=== PATIENT | male | born 1950 | race Caucasian/White ===

== ENCOUNTER 2018-09-11 05:57 | Inpatient (IN) | payer OTHER ==
[2018-09-11] VITALS (21 sets, daily range): BP systolic 74–126; BP diastolic 37–74
[~2018-09-11] VITALS: Ht 182.9 cm; Wt 127.5 kg
[2018-09-11] MEDS ORDERED: METHYLENE BLUE 10 ML VIAL ONE (06:40)
[2018-09-11] MEDS ORDERED: LIDOCAINE HCL/PF 1% 30 ML SDV ONE ×2 (06:40→09:12)
[2018-09-11] MEDS ORDERED: CEFAZOLIN 1 GM ONE (06:40)
[2018-09-11] MEDS ORDERED: HEMOSTATIC MATRIX 10 ML 1 EACH PAD MC ONE ×4 (06:40→13:12)
[2018-09-11] MEDS ORDERED: ANESTHESIA TRAY IN PYXIS 1 EA TRAY MC ONE ×2 (06:40→15:11)
[2018-09-11] MEDS ORDERED: methylPREDNISolone ACETATE 80 MG/ML VIAL ONE (06:41)
[2018-09-11] MEDS ORDERED: PROPOFOL 100 ML ONE (06:48)
[2018-09-11] MEDS ORDERED: PROPOFOL 300 ML ONE (06:50)
--- NOTE | 2018-09-11 06:55 | NUR ---
MS RN NOTE RECEIVED PT IN STABLE CONDITION A&O X4. PT IS AMBULATORY, NO SIGNS OF SOB OR DISTRESS, NO C/O PAIN. NPO SINCE 0000. IV IN R AC #20 S/L. BODY CHECK DONE. BELONGINGS ACCOUNTED FOR. ALL CURRENT NEEDS MET. BED LOW, LOCKED, UPPER RAILS UP AND CALL LIGHT WITHIN REACH. WILL ENDORSE TO NEXT SHIFT FOR VILLA.
[2018-09-11] MEDS ORDERED: BACITRACIN OPHTH OINT 3.5 GM TUBE ONE (08:25)
[2018-09-11] MEDS ORDERED: BUPIVACAINE 0.5 % PF 150 MG/30 ML VIAL ONE (09:14)
[2018-09-11] MEDS ORDERED: HEPARIN SODIUM, PORCINE 5000 UNITS/1 ML VIAL ONE (09:19)
[2018-09-11] MEDS ORDERED: PHENYLEPHRINE 10 MG/ML VIAL IV ONE (10:08)
[2018-09-11] MEDS ORDERED: TRANEXAMIC ACID 1,000 MG in IV NS 0.9% 100 ML IV ONE (10:30)
[2018-09-11] MEDS ORDERED: CYCLOBENZAPRINE 10 MG TABLET PO PRN (12:00)
[2018-09-11] MEDS ORDERED: MENTHOL/CETYLPYRD (CEPACOL) 1 LOZ LOZENGE MM PRN (12:00)
[2018-09-11] MEDS ORDERED: CLONIDINE HCL 0.1 MG TABLET PO PRN (12:00)
[2018-09-11] MEDS ORDERED: diphenhydrAMINE HCL 25 MG CAPSULE PO PRN (12:00)
[2018-09-11] MEDS ORDERED: HYDROMORPHONE INJ 0.5 MG/0.5 ML SYRINGE IV PRN (12:00)
[2018-09-11] MEDS ORDERED: BISACODYL SUPP (10 MG) 10 MG/SUPP.RECT SUPP.RECT RC PRN (12:00)
[2018-09-11] MEDS ORDERED: FENTANYL PF 100MCG/2ML AMPUL ONE (12:18)
[2018-09-11] MEDS ORDERED: GELATIN SPONGE,ABSORBABLE 1 SPONGE SPONGE TP ONE (12:24)
[2018-09-11] MEDS ORDERED: GELATIN SPONGE,ABSORBABLE 1 EA SPONGE TP ONE (12:25)
[2018-09-11] MEDS ORDERED: MAGNESIUM HYDROXIDE 30 ML UDC PO PRN (12:30)
[2018-09-11] MEDS ORDERED: MAG HYDROX/AL HYDROX/SIMETH 30 ML UDC PO PRN (12:30)
[2018-09-11] MEDS ORDERED: oxyCODONE IR immediate release 5 MG PO PRN (12:30)
[2018-09-11] MEDS: GABAPENTIN 300 MG CAPSULE PO SCH (13:00)
[2018-09-11 13:08] LABS: BASOPHILS % (AUTO) 0.3 % (0.0-2.0); EOSINOPHILS % (AUTO) 0.9 % (0.0-6.0); HEMATOCRIT 34 % (39-51); HEMOGLOBIN 11.4 g/dL (13.5-17.5); LYMPHOCYTES # (AUTO) 0.6 /CMM (0.8-4.8); LYMPHOCYTES % (AUTO) 5.4 % (20.0-44.0); MEAN CORPUSCULAR HGB CONC 34 g/dl (31.0-36.0); MEAN CORPUSCULAR VOLUME 86 fL (80-96); MONOCYTES # (AUTO) 0.1 /CMM (0.1-1.30); MONOCYTES % (AUTO) 1.2 % (2.0-12.0); NEUTROPHILS # (AUTO) 10.1 /CMM (1.8-8.9); NEUTROPHILS % (AUTO) 92.2 % (43.0-81.0); PLATELET COUNT (AUTO) 241 /CMM (150-450); RED BLOOD CELL COUNT(AUTO) 3.98 MIL/uL (4.5-6.0); WHITE BLOOD COUNT (AUTO) 10.9 K/uL (4.3-11.0)
[2018-09-11] MEDS ORDERED: HYDROMORPHONE INJ 0.5 MG/0.5 ML SYRINGE SQ PRN (14:52)
[2018-09-11] MEDS ORDERED: NALOXONE HCL 0.4 MG/ML AMPUL IV PRN (15:00)
[2018-09-11] MEDS ORDERED: HYDROMORPHONE INJ 2 MG/ML DISP.SYRIN ONE ×3 (16:59→17:51)
[2018-09-11] MEDS ORDERED: VANCOMYCIN 1 GM VIAL ONE (17:41)
--- NOTE | 2018-09-11 18:50 | NUR ---
RETAIL MERCHANDISING SPECIALIST NOTE RECEIVED PATIENT FROM OR.PATIENT INTUBATED 7 AND 24 AT LIP LEVEL.SEDATED.BP LOW STARTED ON RENEE.OK TO START AT 25MCG PER DOCTOR.TO KEEP SBP >100-110.AND TITRATE RENEE TO BE OFF.REPORT GIVEN TO MERI SAENZ FOR VILLA.
[2018-09-11 19:19] LABS: BASOPHILS % (AUTO) 0.1 % (0.0-2.0); EOSINOPHILS % (AUTO) 0.1 % (0.0-6.0); HEMATOCRIT 37 % (39-51); HEMOGLOBIN 11.9 g/dL (13.5-17.5); LYMPHOCYTES # (AUTO) 0.5 /CMM (0.8-4.8); LYMPHOCYTES % (AUTO) 2.9 % (20.0-44.0); MEAN CORPUSCULAR HGB CONC 33 g/dl (31.0-36.0); MEAN CORPUSCULAR VOLUME 88 fL (80-96); MONOCYTES # (AUTO) 0.6 /CMM (0.1-1.30); MONOCYTES % (AUTO) 3.6 % (2.0-12.0); NEUTROPHILS # (AUTO) 15.9 /CMM (1.8-8.9); NEUTROPHILS % (AUTO) 93.3 % (43.0-81.0); PLATELET COUNT (AUTO) 250 /CMM (150-450); RED BLOOD CELL COUNT(AUTO) 4.17 MIL/uL (4.5-6.0); WHITE BLOOD COUNT (AUTO) 17.1 K/uL (4.3-11.0)
[2018-09-11 19:24] LABS: CALCIUM, SERUM 7.9 mg/dL (8.5-10.1); CREATININE 1.7 mg/dL (0.6-1.3)
[2018-09-11] MEDS ORDERED: ONDANSETRON HCL/PF 4 MG/2 ML VIAL IVP PRN (19:30)
[2018-09-11] MEDS: PHENYLEPHRINE 20 MG in IV D5W 250 ML IV PRN (19:30)
[2018-09-11] MEDS ORDERED: Z GUARD REMEDY 2 OZ OINT TP PRN (19:30)
[2018-09-11] MEDS ORDERED: ZOLPIDEM TARTRATE 5 MG TABLET PO PRN (19:30)
[2018-09-11] MEDS: ANCEF 1 GM/50 ML D5W IV SCH ×2 (19:48)
[2018-09-11] MEDS: FAMOTIDINE (20 MG) 20 MG TABLET PO SCH (20:04)
[2018-09-11 20:13] LABS: POTASSIUM 6.9 mmol/L (3.5-5.1)
[2018-09-11] MEDS ORDERED: INSULIN REGULAR, HUMAN 100 UNIT/ML 10 ML VIAL SQ ONE (20:30)
[2018-09-11] MEDS ORDERED: DEXTROSE 50%-WATER 50 ML DISP.SYRIN IVP ONE (20:30)
[2018-09-11] MEDS: IV NS 0.9% 1,000 ML IV PRN (20:39)
[2018-09-11] MEDS: PROPOFOL 100 ML IV PRN (20:58)
[2018-09-11] MEDS: HYDROMORPHONE 1 MG/1 ML DISP.SYRIN IV PRN ×2 (21:06→23:07)
--- NOTE | 2018-09-11 21:35 | NUR ---
RATE CHANGED TO 16 FROM 12. VT TO [address] HERNANDEZ. LETTY AL AND CHARGE DAPHNE NOTIFIED. REPEAT ABG IN THE MORNING.
[2018-09-11] MEDS ORDERED: HEPARIN SODIUM, PORCINE 5000 UNITS/1 ML VIAL SQ ONE (22:00)
--- NOTE | 2018-09-11 22:00 | NUR ---
FIO2 DECREASED DUE TO INCREASED SPO2. RN AWARE Addendum: 09/11/18 at 2229 by ALLYSON HADDAD Amended: Links added.
[2018-09-11 22:23] LABS: CALCIUM, SERUM 7.8 mg/dL (8.5-10.1); CREATININE 1.7 mg/dL (0.6-1.3)
[2018-09-11 22:32] LABS: POTASSIUM 7.1 mmol/L (3.5-5.1)
[2018-09-11] MEDS ORDERED: Calcium Gluconate 0.465 MEQ/ML VIAL IV ONE (22:58)
[2018-09-11] MEDS ORDERED: Calcium Gluconate 1GM/10ML 4.65 MEQ in IV NS 0.9% 50 ML IV ONE (23:00)
[2018-09-12] VITALS (52 sets, daily range): BP systolic 85–185; BP diastolic 46–97
[2018-09-12] MEDS ORDERED: DEXTROSE 50%-WATER 50 ML DISP.SYRIN IV PRN
[2018-09-12] MEDS: BLOOD SUGAR DIAGNOSTIC 1 EACH STRIP IN SCH ×4 (00:14→17:53)
[2018-09-12] MEDS: INSULIN REGULAR, HUMAN 100 UNIT/ML 3 ML VIAL SQ PRN ×2 (00:16→05:30)
[2018-09-12 01:35] LABS: CALCIUM, SERUM 7.8 mg/dL (8.5-10.1); CREATININE 1.8 mg/dL (0.6-1.3)
[2018-09-12 01:36] LABS: POTASSIUM 6.8 mmol/L (3.5-5.1)
--- NOTE | 2018-09-12 02:08 | NUR ---
DR XIONG CALLED AND NOTIFIED OF POTASSIUM LEVEL 6.8, WILL ORDER EKG
[2018-09-12] MEDS: HYDROMORPHONE 1 MG/1 ML DISP.SYRIN IV PRN ×5 (02:32→11:34)
[2018-09-12] MEDS: PROPOFOL 100 ML IV PRN ×2 (02:37→06:28)
[2018-09-12] MEDS: ANCEF 1 GM/50 ML D5W IV SCH ×2 (04:02)
[2018-09-12] MEDS ORDERED: PHENYLEPHRINE 10 MG/ML VIAL ONE (04:33)
[2018-09-12] MEDS: PHENYLEPHRINE 20 MG in IV D5W 250 ML IV PRN (04:40)
[2018-09-12 05:08] LABS: BASOPHILS % (AUTO) 0.1 % (0.0-2.0); EOSINOPHILS % (AUTO) 0.1 % (0.0-6.0); HEMATOCRIT 31 % (39-51); HEMOGLOBIN 10.6 g/dL (13.5-17.5); LYMPHOCYTES % (AUTO) 8.2 % (20.0-44.0); MEAN CORPUSCULAR HGB CONC 34 g/dl (31.0-36.0); MEAN CORPUSCULAR VOLUME 87 fL (80-96); MONOCYTES # (AUTO) 1.2 /CMM (0.1-1.30); MONOCYTES % (AUTO) 9.6 % (2.0-12.0); NEUTROPHILS # (AUTO) 10.3 /CMM (1.8-8.9); PLATELET COUNT (AUTO) 243 /CMM (150-450); RED BLOOD CELL COUNT(AUTO) 3.61 MIL/uL (4.5-6.0); WHITE BLOOD COUNT (AUTO) 12.6 K/uL (4.3-11.0)
[2018-09-12 05:25] LABS: CALCIUM, SERUM 7.8 mg/dL (8.5-10.1); CREATININE 1.6 mg/dL (0.6-1.3); MAGNESIUM 1.8 mg/dL (1.8-2.4); PHOSPHORUS 2.6 mg/dL (2.5-4.9)
[2018-09-12] MEDS: IV NS 0.9% 1,000 ML IV PRN (06:15)
[2018-09-12] MEDS ORDERED: IV NS 0.9% 500 ML IV ONE (07:00)
[2018-09-12] MEDS ORDERED: FUROSEMIDE 20 MG/2 ML VIAL IV ONE (07:00)
[2018-09-12] MEDS ORDERED: SODIUM POLYSTYRENE SULFONATE 15 G/60 ML BOTTLE PO ONE (07:00)
--- NOTE | 2018-09-12 07:20 | NUR ---
MASTER FIRE CONTROL TECHNICIAN OPENING NOTE RECEIVED REPORT FROM PM NURSE.PATIENT IS INTUBATED 7.0/24 AND SEDATED WITH PROPOFOL 30MCG .BILATERAL CHEST MOVEMENT NOTED.BREATHING NORMAL.ON RENEE FOR MAINTAINING BP.HAS A- LINE INTACT AND PATENT.SAFETY AND ASPIRATION PRECAUTIONS IN PLACE.SIDE RAILSX2.BED ALARM ON WILL CONTINUE TO MONITOR.
[2018-09-12] MEDS ORDERED: BENZ1LOZ58 MM (08:07)
[2018-09-12] MEDS ORDERED: HYDR4TAB4 SUBCUT (08:07)
[2018-09-12] MEDS ORDERED: CLON0.1T PO (08:07)
[2018-09-12] MEDS ORDERED: DOCU-141 PO (08:07)
[2018-09-12] MEDS ORDERED: CYCL10TA9 PO (08:27)
[2018-09-12] MEDS ORDERED: SENN-18 PO (08:27)
[2018-09-12] MEDS ORDERED: FAMO-131 PO (08:27)
[2018-09-12] MEDS ORDERED: DIPH25TA25 PO (08:27)
[2018-09-12] MEDS ORDERED: HYDR-3980 PO (08:27)
[2018-09-12] MEDS ORDERED: GABA600T12 PO (08:27)
[2018-09-12] MEDS ORDERED: LAMO200T2 PO (08:27)
[2018-09-12] MEDS ORDERED: TAMS-12 PO (08:27)
[2018-09-12] MEDS ORDERED: MAGN400O6 PO (08:27)
[2018-09-12] MEDS ORDERED: ONDA4VIA52 IJ (08:27)
[2018-09-12] MEDS ORDERED: SEROQUEL PO (08:27)
[2018-09-12] MEDS ORDERED: MAG355OR18 PO (08:27)
[2018-09-12] MEDS ORDERED: OXYCODONE PO (08:27)
[2018-09-12] MEDS ORDERED: BISA10SU61 RC (08:27)
[2018-09-12] MEDS ORDERED: INSU100I19 SQ (08:40)
[2018-09-12] MEDS ORDERED: FLUT9.9S NS (08:40)
[2018-09-12] MEDS ORDERED: MELO-107 PO (08:40)
[2018-09-12] MEDS ORDERED: GLYC10.7 IH (08:40)
[2018-09-12] MEDS ORDERED: FOLI1TAB16 PO (08:40)
[2018-09-12] MEDS ORDERED: OMEP20CA11 PO (08:40)
[2018-09-12] MEDS ORDERED: LISI10TA5 PO (08:40)
[2018-09-12] MEDS ORDERED: ROPI0.5T PO (08:40)
[2018-09-12] MEDS ORDERED: DICL100G16 TP (08:40)
[2018-09-12] MEDS ORDERED: SIMV10TA6 PO (08:40)
[2018-09-12] MEDS ORDERED: GLIM4TAB2 PO (08:40)
[2018-09-12] MEDS ORDERED: DULA1.5P SQ (08:40)
[2018-09-12] MEDS: SODIUM ACETATE IV PRN ×2 (08:49→19:01)
[2018-09-12] MEDS: D5W IV PRN ×2 (08:49→19:01)
[2018-09-12] MEDS: FAMOTIDINE (20 MG) 20 MG TABLET PO SCH ×2 (08:50→20:29)
[2018-09-12] MEDS: SENNOSIDES 8.6 MG TABLET PO SCH (08:50)
[2018-09-12] MEDS: GABAPENTIN 300 MG CAPSULE PO SCH ×3 (08:50→16:29)
[2018-09-12] MEDS: TAMSULOSIN 0.4 MG CAP.SR.24H PO SCH (08:51)
[2018-09-12] MEDS: LamoTRIgine 100 MG TABLET PO SCH ×2 (08:51→16:29)
[2018-09-12] MEDS: DOCUSATE SODIUM 100 MG CAPSULE PO SCH ×2 (08:51→16:29)
[2018-09-12] MEDS ORDERED: HEPARIN SODIUM, PORCINE 5000 UNITS/1 ML VIAL SQ SCH (09:00)
[2018-09-12] MEDS ORDERED: DC PROPOFOL WHEN EXTUBATED XX PRN (09:00)
[2018-09-12 09:13] LABS: ABG BASE EXCESS -5.7 mmol/L; ABG OXYGEN SATURATION 97.6 % (92.0-98.5); ABG PCO2 41.5 mmHg (35.0-45.0); ABG PH 7.307 (7.350-7.450); ABG PO2 143.5 mmHg (75.0-100.0); AaDO2 238.7 mmHg; COHb 0.3 % (0.5-1.5); O2Hb 97.3 % (94.0-97.0); SITE, ABG Right Radial; VENT MODE, BG AC 16 650 60% +0
--- NOTE | 2018-09-12 10:50 | NUR ---
LABORER CEMENT GUN PLACING NOTE SEEN BY .GOT NEW ORDER FRO EXTUBATION.
--- NOTE | 2018-09-12 10:52 | NUR ---
RT EXTUBATED PT PLACE ON 2L NC SP02 98% NO RESP DISTRESS NOTED ATT
[2018-09-12 11:00] LABS: ABG BASE EXCESS -4.1 mmol/L; ABG OXYGEN SATURATION 98.2 % (92.0-98.5); ABG PCO2 34.3 mmHg (35.0-45.0); ABG PH 7.387 (7.350-7.450); ABG PO2 221.6 mmHg (75.0-100.0); AaDO2 168.5 mmHg; COHb 0.3 % (0.5-1.5); MetHb 0.3 % (0.0-1.5); O2Hb 97.6 % (94.0-97.0); SITE, ABG Right Radial; VENT MODE, BG SIMV 4 PS 15 +5 60%
[2018-09-12 12:30] LABS: APPEARANCE,URINE CLEAR (CLEAR); BILIRUBIN,URINE NEGATIVE (NEGATIVE); BLOOD, URINE NEGATIVE Ery/uL (NEGATIVE); COLOR,URINE YELLOW (YELLOW); KETONES,URINE NEGATIVE (NEGATIVE); LEUKOCYTE ESTERASE ,URINE NEGATIVE (NEGATIVE); NITRITE, URINE NEGATIVE (NEGATIVE); PROTEIN,URINE NEGATIVE (NEGATIVE); UGLUCOSE NEGATIVE (NEGATIVE); UROBILINOGEN,URINE 0.2 EU/dL (0.2)
[2018-09-12] MEDS ORDERED: QUETIAPINE FUMARATE 100 MG TABLET PO SCH (13:00)
[2018-09-12 13:02] LABS: CREATININE 1.4 mg/dL (0.6-1.3); POTASSIUM 4.6 mmol/L (3.5-5.1)
[2018-09-12 13:12] LABS: CREATININE, URINE 40.3 MG/DL (30.0-125.0); URINE SODIUM, RANDOM 130 mmol/l (40-220)
[2018-09-12 13:13] LABS: URINE TOTAL PROTEIN < 6.0 mg/dL (0-11.9)
[2018-09-12 13:57] LABS: EOSINOPHIL,URINE None Seen
[2018-09-12] MEDS: HYDROMORPHONE MDV 30 MG in IV NS 0.9% 15 ML, PCA TOTAL VOLUME 1 BAG IV PRN ×3 (14:52)
[2018-09-12] MEDS: ACETAMINOPHEN 325 MG TABLET PO PRN ×2 (16:29→21:02)
--- NOTE | 2018-09-12 18:51 | NUR ---
PIER WORKER CLOSING NOTE PATIENT AXOX4 WITH PERIODS OF CONFUSION. VISITED THE PATIENT.ON O2 VA NASAL CANULA 2L.NO SOB NO DISTRESS NOTED.ON VEGETABLE FARM WORKER FOR PAIN MANAGEMENT.SAFETY AND ASPIRATION PRECAUTIONS IN PLACE.A LINE REMOVED.MINIMAL BLEEDING NOTED.PRESSURE DRESSING APPLIED.ASPIRATION AND SAFETY MEASURES IN PLACE.SIDE RAILSX2.BED ALARM ON WILL ENDORSE TO M NURSE FOR VILLA.
--- NOTE | 2018-09-12 20:00 | NUR ---
COLLAR POINTER - NOTES - PATIENT AXOX4 WITH PERIODS OF CONFUSION. ON O2 VIA NASAL CANULA 2L. NO SOB NO DISTRESS NOTED. ON INSTALLER SOFT TOP FOR PAIN MANAGEMENT. SAFETY AND ASPIRATION PRECAUTIONS IN PLACE. ASPIRATION AND SAFETY MEASURES IN PLACE. SIDE RAILSX2. BED ALARM ON WILL CONTINUE TO MONITOR
[2018-09-12] MEDS: QUETIAPINE FUMARATE 100 MG TABLET PO SCH (20:29)
[2018-09-13] VITALS (15 sets, daily range): BP systolic 109–152; BP diastolic 35–80
[2018-09-13] MEDS: BLOOD SUGAR DIAGNOSTIC 1 EACH STRIP IN SCH ×4 (00:20→17:11)
[2018-09-13] MEDS: INSULIN REGULAR, HUMAN 100 UNIT/ML 3 ML VIAL SQ PRN ×4 (00:37→18:06)
[2018-09-13 04:56] LABS: BASOPHILS % (AUTO) 0.2 % (0.0-2.0); EOSINOPHILS % (AUTO) 0.7 % (0.0-6.0); HEMATOCRIT 34 % (39-51); HEMOGLOBIN 11.4 g/dL (13.5-17.5); LYMPHOCYTES # (AUTO) 1.9 /CMM (0.8-4.8); LYMPHOCYTES % (AUTO) 13.8 % (20.0-44.0); MEAN CORPUSCULAR HGB CONC 34 g/dl (31.0-36.0); MEAN CORPUSCULAR VOLUME 87 fL (80-96); MONOCYTES # (AUTO) 1.5 /CMM (0.1-1.30); MONOCYTES % (AUTO) 11.1 % (2.0-12.0); NEUTROPHILS # (AUTO) 10.2 /CMM (1.8-8.9); NEUTROPHILS % (AUTO) 74.2 % (43.0-81.0); PLATELET COUNT (AUTO) 237 /CMM (150-450); RED BLOOD CELL COUNT(AUTO) 3.87 MIL/uL (4.5-6.0); WHITE BLOOD COUNT (AUTO) 13.8 K/uL (4.3-11.0)
[2018-09-13 05:17] LABS: CALCIUM, SERUM 8.3 mg/dL (8.5-10.1); CREATININE 1.2 mg/dL (0.6-1.3); POTASSIUM 4.3 mmol/L (3.5-5.1)
[2018-09-13 05:18] LABS: ALBUMIN 2.9 g/dL (3.4-5.0); BILIRUBIN,TOTAL 0.7 mg/dL (0.2-1.0); MAGNESIUM 1.6 mg/dL (1.8-2.4); PHOSPHORUS 2.5 mg/dL (2.5-4.9); TOTAL PROTEIN, SERUM 6.2 g/dL (6.4-8.2)
--- NOTE | 2018-09-13 06:00 | NUR ---
TOTAL CK 2174, LOCAL GOVERNMENT LEGISLATOR GEOVANNA BRO NOTIFIED, NO NEW ORDERS
--- NOTE | 2018-09-13 07:15 | NUR ---
RN INITIAL NOTES RECEIVED PT AWAKE, A/0X2-3. NO RESPIRATORY DISTRESS NOTED. C/O BACK AND LEFT LEG PAIN. PT ON PT CONTROLLED DILAUDID DRIP. EXPLAINED USE, POSSIBLE SIDE EFFECTS OF DILAUDID. REINFORCED USE OF HAND HELD CONTROL. HEMOVAC IN PLACE. IV LINES IN PLACE. FC IN PLACE. NO HEMATURIA NOTED. WILL CLOSELY MONITOR.
[2018-09-13] MEDS: SENNOSIDES 8.6 MG TABLET PO SCH (08:23)
[2018-09-13] MEDS: DOCUSATE SODIUM 100 MG CAPSULE PO SCH ×2 (08:23→17:10)
[2018-09-13] MEDS: GABAPENTIN 300 MG CAPSULE PO SCH ×3 (08:23→17:11)
[2018-09-13] MEDS: TAMSULOSIN 0.4 MG CAP.SR.24H PO SCH (08:23)
[2018-09-13] MEDS: QUETIAPINE FUMARATE 100 MG TABLET PO SCH ×3 (08:23→20:34)
[2018-09-13] MEDS: FAMOTIDINE (20 MG) 20 MG TABLET PO SCH ×2 (08:23→20:34)
[2018-09-13] MEDS: LamoTRIgine 100 MG TABLET PO SCH ×2 (08:23→17:10)
--- NOTE | 2018-09-13 10:30 | NUR ---
RN NOTES 1000 SEEN AND EXAMINED BY DR HERNANDEZ. PT 0N 02 AT 2LPM. NO RESPIRATORY DISTRESS NOTED. NO SIGNS OF PAIN NOTED. PT ON HAIRSPRING STAKER, DILAUDID. PAIN WELL MANAGED. PT OFF RENEE SINCE 09/12. PT A/OX2-3. WILL MONITOR 1030 SEEN AND EXAMINED BY DR BARRETT. PT A/OX2-3. ON 02 VIA NC AT 2LPM. NO RESPIRATORY DISTRESS NOTED. ON HAIRSPRING STAKER PUMP, DILAUDID. VS WNL. PAIN WELL MANAGED. HEMOVAC IN PLACE. ABLE TO MOVE BLE. OK TO DOWNGRADE PT TELE.
--- NOTE | 2018-09-13 10:40 | NUR ---
RN NOTES AFSA RN TOOK OVER PT'S CARE. PERTINENT INFO GIVEN
[2018-09-13] MEDS: ONDANSETRON HCL/PF 4 MG/2 ML VIAL IVP PRN ×2 (11:05→18:42)
[2018-09-13] MEDS: LEVOFLOXACIN 500 MG /D5W 100ML 500 MG in PREMIX 1 EA IV SCH (13:09)
[2018-09-13] MEDS: Magnesium 1GM/D5W 100ML PREMIX 100 ML IV SCH ×2 (15:15→16:01)
--- NOTE | 2018-09-13 16:13 | NUR ---
REPORT GIVEN TO MARGARITO FOR VILLA
--- NOTE | 2018-09-13 16:15 | NUR ---
RECEIVED REPORT FROM OIL LABORATORY ANALYST.
--- NOTE | 2018-09-13 19:08 | NUR ---
FLEXIBLE BABYSITTER CLOSING NOTES GAVE REPORT TO INTERIOR SYSTEMS CARPENTER RN. PT IS SLEEPING BUT AROUSES EASILY. PT IS ON A BEAM BUILDER HELPER PUMP WITH DILAUDID GOING. PT HAS A ZAMAN DRAINING TO GRAVITY AND SAHRA IV 20 GAUGE. BED IS LOCKED AND CALL LIGHT IS IN PLACE WILL ENDORSE CONTINUITY OF CARE TO INTERIOR SYSTEMS CARPENTER RN.
--- NOTE | 2018-09-13 19:10 | NUR ---
TELE/RN ENTRY NOTES PATIENT IN NO ACUTE DISTRESS. BREATHING EVEN AND UNLABORED. ON 2 LTRS VIA N/C. HOB KEPT ELEVATED. PATIENT A/O X4. PATIENT C/O NAUSEA /VOMITING. PRN ZOFRAN WAS GIVEN ORDERED . WILL CONTINUE TO MONITOR. PATIENT DENIES ANY PAIN AT THIS TIME. PATIENT ON DILAUDID DRIPS VIA PLATE AND WELD INSPECTOR PUMP, EXPLAINED HOW TO USE HAND HELD CONTROL, POSSIBLE SIDE EFFECTS OF DILAUDID. F/C IN PLACE, PATENT, DRAINING WELL WITH CLEAN YELLOW URINE. IV SITES ON R SHOULDER AND R FOREARM NOTES WITH NO S/S OF INFECTION, INFILTRATION. SAFETY MAINTAINED. BED AT THE LOWEST SETTINGS. CALL LIGHT WITHIN REACH. WILL CONTINUE TO MONITOR PATIENT PER PLAN OF CARE.
[2018-09-13] MEDS ORDERED: KEY,NONCONTROL,TO KEEP IN PYXI 1 EA MC ONE ×2 (19:23→20:09)
[2018-09-13] MEDS: HYDROMORPHONE MDV 30 MG in IV NS 0.9% 15 ML, PCA TOTAL VOLUME 1 BAG IV PRN ×3 (20:15)
--- NOTE | 2018-09-13 20:45 | NUR ---
TELE/RN NOTES PATIENT HAD X 2 EPISODES OF VOMITING. COLOR NOTES YELLOW WITH FOOD PARTICLES. NO BLOOD IN THE VOMIT NOTED. PATIENT STOMACH NOTED DISTENDED WITH HYPOACTIVE BOWEL SOUNDS IN ALL QUADRANT. CALLED DR BRUNO AT THIS TIME. LEFT MESSAGE. WATING FOR CALL BACK.
--- NOTE | 2018-09-13 21:00 | NUR ---
TELE/RN NOTES DO YADIRA LEAD PRESSMAN OF DR BRUNO CALLED BACK AT THIS TIME, RELAYED TO PATIENT CONDITION, V/S WITH NEW ORDER TO GIVE PATIENT MAGNESIUM CITRATE. ORDER NOTED AND CARRIED OUT . WILL CONTINUE TO MONITOR PATIENT
[2018-09-13] MEDS ORDERED: MAGNESIUM CITRATE 296 ML BOTTLE PO ONE (21:30)
--- NOTE | 2018-09-13 22:00 | NUR ---
TELE/RN NOTES PATIENT REUSED TO HAVE HIS F/C REMOVED AT THIS TIME. PATIENT SAID " I WANT TO SLEEP, DO IT IN THE MORNING" WILL FOLLOW UP
--- NOTE | 2018-09-13 23:37 | NUR ---
RELAYED TO DR MAY THAT ZOFRAN WAS INEFFECTIVE.
[2018-09-14] VITALS: BP 136/70
[2018-09-14] MEDS: BLOOD SUGAR DIAGNOSTIC 1 EACH STRIP IN SCH ×4 (00:04→17:02)
[2018-09-14] MEDS: INSULIN REGULAR, HUMAN 100 UNIT/ML 3 ML VIAL SQ PRN ×4 (00:09→17:07)
[2018-09-14] MEDS: ONDANSETRON HCL/PF 4 MG/2 ML VIAL IVP PRN ×2 (02:19→09:25)
[2018-09-14 04:00] VITALS: BP 121/78
--- NOTE | 2018-09-14 04:30 | NUR ---
ENVIRONMENTAL SERVICES AIDE NOTES PATIENT CONTINUE TO HAVE EPISODES OF NAUSEA/VOMITING. PRN ZOFRAN WAS GIVEN WITH INEFFECTIVENESS. CALLED DR MAY AT THIS TIME AND RELAYED TO THE DOCTOR PATIENT CONDITION. DR MAY WITH NEW ORDER TO HAVE GI CONSULT. ORDER NOTED. WILL CONTINUE TO MONITOR PATIENT.
[2018-09-14 06:33] LABS: BASOPHILS % (AUTO) 0.1 % (0.0-2.0); EOSINOPHILS % (AUTO) 0.3 % (0.0-6.0); HEMATOCRIT 32 % (39-51); HEMOGLOBIN 10.6 g/dL (13.5-17.5); LYMPHOCYTES % (AUTO) 7.6 % (20.0-44.0); MEAN CORPUSCULAR HGB CONC 34 g/dl (31.0-36.0); MEAN CORPUSCULAR VOLUME 87 fL (80-96); MONOCYTES # (AUTO) 1.2 /CMM (0.1-1.30); NEUTROPHILS # (AUTO) 10.6 /CMM (1.8-8.9); PLATELET COUNT (AUTO) 228 /CMM (150-450); RED BLOOD CELL COUNT(AUTO) 3.63 MIL/uL (4.5-6.0); WHITE BLOOD COUNT (AUTO) 12.8 K/uL (4.3-11.0)
--- NOTE | 2018-09-14 06:47 | NUR ---
TELE/RN ENTRY NOTES PATIENT IN BED, SLEEPING AT THIS TIME, EASILY AROUSABLE. PATIENT IN NO ACUTE DISTRESS. BREATHING EVEN AND UNLABORED. ON 2 LTRS VIA N/C. HOB KEPT ELEVATED. NO S/S OF PAIN NOTED AT THIS TIME. NO C/O NAUSEA/ VOMITING AT THIS TIME. F/C IN PLACE, PATENT, DRAINING WELL WITH CLEAR, YELLOW URINE. IV SITES ON R SHOULDER AND R UPPER ARM NOTES WITH NO S/S OF INFECTION, INFILTRATION. SAFETY MAINTAINED. BED AT THE LOWEST SETTINGS. CALL LIGHT WITHIN REACH. WILL ENDORSE TO THE AM SHIFT NURSE FOR VILLA
[2018-09-14 06:53] LABS: CALCIUM, SERUM 8.3 mg/dL (8.5-10.1); CREATININE 1.5 mg/dL (0.6-1.3); MAGNESIUM 2.5 mg/dL (1.8-2.4); PHOSPHORUS 3.8 mg/dL (2.5-4.9); POTASSIUM 4.9 mmol/L (3.5-5.1)
--- NOTE | 2018-09-14 07:25 | NUR ---
RN OPENING NOTES RECEIVED PATIENT IN BED SLEEPING COMFORTABLY. EASILY AROUSABLE. PATIENT ALERT AND ORIENTED X4. NO ACUTE DISTRESS AT THIS TIME. RESPIRATIONS EVEN AND UNLABORED. SKIN IS DRY WARM TO TOUCH. PATIENT ON 2 LPM VIA N/C. TOLERATED WELL. HOB KEPT ELEVATED. NO EPISODES OF N/V AT THIS TIME. PATIENT ON DILAUDID DRIPS VIA VEIN ACCESS TECHNICIAN PUMP, EXPLAINED HOW TO USE HAND HELD CONTROL, MONITOR FOR POSSIBLE SIDE EFFECTS OF DILAUDID. IV SITES ON R SHOULDER AND R FOREARM INTACT WITH NO S/S OF INFECTION OR INFILTRATION. ALL NEEDS ANTICIPATED. KEPT CLEAN AND DRY. CALL LIGHT WITHIN REACHED. BED LOCKED AND IN LOWEST POSITION. SAFETY MAINTAINED. BED ALARM ON. PLAN OF CARE DISCUSSED. WILL CONTINUE TO MONITOR PATIENT CLOSELY.
--- NOTE | 2018-09-14 07:30 | NUR ---
TEL nurse ,Dr Roman was notified re; patient's condition including he has been vomited couple times during the night and abdomen distension , stated will evaluation of patient condition
[2018-09-14 08:00] VITALS: BP 123/69
[2018-09-14] MEDS: LamoTRIgine 100 MG TABLET PO SCH ×2 (09:22→16:58)
[2018-09-14] MEDS: QUETIAPINE FUMARATE 100 MG TABLET PO SCH ×3 (09:22→20:42)
[2018-09-14] MEDS: GABAPENTIN 300 MG CAPSULE PO SCH ×3 (09:22→16:58)
[2018-09-14] MEDS: SENNOSIDES 8.6 MG TABLET PO SCH (09:22)
[2018-09-14] MEDS: TAMSULOSIN 0.4 MG CAP.SR.24H PO SCH (09:22)
[2018-09-14] MEDS: FAMOTIDINE (20 MG) 20 MG TABLET PO SCH ×2 (09:22→20:42)
[2018-09-14] MEDS: DOCUSATE SODIUM 100 MG CAPSULE PO SCH ×2 (09:22→16:58)
--- NOTE | 2018-09-14 10:00 | NUR ---
RN NOTES ZAMAN CATHETER WAS REMOVED PER ORDER. PATIENT WAS ABLE TO TOLERATE REMOVAL WELL. PATIENT REMAINS IN STABLE CONDITION. WILL CONTINUE PLAN OF CARE.
[2018-09-14] MEDS: LEVOFLOXACIN 500 MG /D5W 100ML 500 MG in PREMIX 1 EA IV SCH (11:21)
[2018-09-14] MEDS: LACTULOSE 10 G/15 ML UDC (PYXIS) PO PRN (11:49)
--- NOTE | 2018-09-14 11:50 | NUR ---
RN NOTES PATIENT WAS GIVEN LACTULOSE PER DR. BARRETT. PATIENT ABLE TO TOLERATE MEDICATION WELL. REMAINS IN STABLE CONDITION WILL CONTINUE TO MONITOR.
[2018-09-14 12:00] VITALS: BP 117/59
[2018-09-14 12:07] LABS: *SPE A/G RATIO 1.2 (0.7-1.7); *SPE ALBUMIN 3.1 g/dL (2.9-4.4); *SPE ALPHA-1-GLOBULIN 0.4 g/dL (0.0-0.4); *SPE ALPHA-2-GLOBULIN 0.7 g/dL (0.4-1.0); *SPE BETA GLOBULIN 0.8 g/dL (0.7-1.3); *SPE GLOBULIN, TOTAL 2.5 g/dL (2.2-3.9); *SPE M-SPIKE Not Observed g/dL (Not Observed); *SPEGAMMA GLOBULIN 0.6 g/dL (0.4-1.8)
[2018-09-14 13:08] LABS: PTH, INTACT 42 pg/mL (15-65)
[2018-09-14 16:00] VITALS: BP_SYST 108; BP_SYST 80; BP_DIAS 42; BP_DIAS 65
[2018-09-14] MEDS ORDERED: PANTOPRAZOLE 40 MG VIAL IV SCH (17:30)
[2018-09-14] MEDS: IV 1/2NS 1000 ML 1,000 ML IV PRN (17:48)
[2018-09-14] MEDS: NEXIUM 40 MG VIAL IV SCH (18:09)
--- NOTE | 2018-09-14 18:50 | NUR ---
RN CLOSING NOTES PATIENT IN BED SLEEPING COMFORTABLY. EASILY AROUSABLE. NO ACUTE DISTRESS AT THIS TIME. RESPIRATION EVEN AND UNLABORED. SKIN IS DRY WARM TO TOUCH. IV ACCESS ON RIGHT HAND INTACT AND PATENT. FLUSHING WELL. NO S/S OF INFECTION AND INFILTRATION. PATIENT ABLE TO TOLERATE MEALS AND MEDS WELL. NO ACUTE CHANGES NOTED DURING THE SHIFT. PROVIDED COMFORT AND SAFETY. KEPT CLEAN AND DRY. CALL LIGHT WITHIN REACHED. BED LOCKED AND IN LOWEST POSITION. WILL CONTINUE TO MONITOR. WILL ENDORSE TO PM NURSE FOR CONTINUITY OF CARE.
--- NOTE | 2018-09-14 19:31 | NUR ---
RN CLOSING NOTES PATIENT IN BED RESTING COMFORTABLY. NO S/S OF ACUTE DISTRESS AT THIS TIME. RESPIRATION EVEN AND UNLABORED. NO SOB NOTED. SKIN IS DRY WARM TO TOUCH. IV ACCESS ON RIGHT HAND INTACT AND PATENT. FLUSHING WELL. NO S/S OF INFECTION AND INFILTRATION NOTED AT THE SITE. PATIENT ON HYDROMORPHONE VIA PAGEANT DIRECTOR, EDUCATED PATIENT REGARDING HAND HELD PAGEANT DIRECTOR CONTROL. POSSIBLE SIDE EFFECTS OF HYDROMORPHONE, PATIENT VERBALIZE UNDERSTANDING. SAFETY MAINTAINED . KEPT CLEAN AND DRY. CALL LIGHT WITHIN REACHED. BED LOCKED AND IN LOWEST POSITION. WILL CONTINUE TO MONITOR PER PLAN OF CARE. Addendum: 09/15/18 at 0702 by PHIL GREGORY RN RN ENTRY NOTES
[2018-09-14] MEDS ORDERED: KEY,NONCONTROL,TO KEEP IN PYXI 1 EA MC ONE ×2 (19:45→21:58)
[2018-09-14 20:00] VITALS: BP 104/58
[2018-09-14] MEDS: HYDROMORPHONE MDV 30 MG in IV NS 0.9% 15 ML, PCA TOTAL VOLUME 1 BAG IV PRN ×3 (22:21)
[2018-09-15] VITALS: BP 102/58
[2018-09-15] MEDS: BLOOD SUGAR DIAGNOSTIC 1 EACH STRIP IN SCH ×4 (00:16→17:09)
[2018-09-15] MEDS: INSULIN REGULAR, HUMAN 100 UNIT/ML 3 ML VIAL SQ PRN ×4 (00:25→17:24)
[2018-09-15 04:00] VITALS: BP 104/60
--- NOTE | 2018-09-15 07:03 | NUR ---
RN CLOSING NOTES. PATIENT IN BED RESTING COMFORTABLY AT THIS TIME. RESPIRATION EVEN AND UNLABORED. NO SOB NOTED. PATIENT IN NO ACUTE DISTRESS. ON DILAUDID VIA STORAGE SPECIALIST PUMP ORDER. R HAND IV SITE NOTED WITH NO S/S OF INFECTION, INFILTRATION. RUNNING WITH IV FLUIDS ORDER. PATIENT KEPT CLEAN AND DRY. SAFETY MAINTAINED. BED AT THE LOWEST POSITION, LOCKED. CALL LIGHT WITHIN REACH. ALL NEEDS ATTENDANT. WILL ENDORSE TO AM SHIFT NURSE FOR VILLA.
[2018-09-15 07:24] LABS: BASOPHILS % (AUTO) 0.1 % (0.0-2.0); EOSINOPHILS % (AUTO) 3.4 % (0.0-6.0); HEMATOCRIT 25 % (39-51); HEMOGLOBIN 8.4 g/dL (13.5-17.5); LYMPHOCYTES # (AUTO) 1.3 /CMM (0.8-4.8); LYMPHOCYTES % (AUTO) 10.9 % (20.0-44.0); MEAN CORPUSCULAR HGB CONC 34 g/dl (31.0-36.0); MEAN CORPUSCULAR VOLUME 87 fL (80-96); MONOCYTES # (AUTO) 1.2 /CMM (0.1-1.30); MONOCYTES % (AUTO) 9.8 % (2.0-12.0); NEUTROPHILS # (AUTO) 9.2 /CMM (1.8-8.9); NEUTROPHILS % (AUTO) 75.8 % (43.0-81.0); PLATELET COUNT (AUTO) 231 /CMM (150-450); RED BLOOD CELL COUNT(AUTO) 2.88 MIL/uL (4.5-6.0); WHITE BLOOD COUNT (AUTO) 12.2 K/uL (4.3-11.0)
--- NOTE | 2018-09-15 07:25 | NUR ---
RN OPENING NOTES RECEIVED PATIENT IN BED AWAKE AND ABLE TO MAKE NEEDS KNOWN.PATIENT A/O X4. NO ACUTE DISTRESS AT THIS TIME. RESPIRATIONS EVEN AND UNLABORED. SKIN IS DRY WARM TO TOUCH. PATIENT ON 2 LPM VIA N/C. HOB KEPT ELEVATED. PATIENT ON DILAUDID DRIPS VIA RECLAMATION ENGINEER PUMP, EXPLAINED HOW TO USE HAND HELD CONTROL, MONITOR FOR POSSIBLE SIDE EFFECTS OF DILAUDID. IV ACCESS ON RIGHT HAND. INTACT AND PATENT. FLUSHING WELL. ALL NEEDS ANTICIPATED. KEPT CLEAN AND DRY. CALL LIGHT WITHIN REACHED. BED LOCKED AND IN LOWEST POSITION. SAFETY MAINTAINED. BED ALARM ON. PLAN OF CARE DISCUSSED. WILL CONTINUE TO MONITOR PATIENT CLOSELY.
[2018-09-15 07:47] LABS: ALBUMIN 2.3 g/dL (3.4-5.0); BILIRUBIN,TOTAL 0.6 mg/dL (0.2-1.0); CALCIUM, SERUM 8.3 mg/dL (8.5-10.1); CREATININE 2.6 mg/dL (0.6-1.3); MAGNESIUM 2.7 mg/dL (1.8-2.4); PHOSPHORUS 3.8 mg/dL (2.5-4.9); POTASSIUM 4.4 mmol/L (3.5-5.1); TOTAL PROTEIN, SERUM 5.8 g/dL (6.4-8.2)
[2018-09-15 08:00] VITALS: BP 106/61
[2018-09-15] MEDS: FAMOTIDINE (20 MG) 20 MG TABLET PO SCH ×2 (09:00→20:53)
[2018-09-15] MEDS: QUETIAPINE FUMARATE 100 MG TABLET PO SCH ×3 (09:00→20:53)
[2018-09-15] MEDS: GABAPENTIN 300 MG CAPSULE PO SCH ×3 (09:00→17:08)
[2018-09-15] MEDS: LamoTRIgine 100 MG TABLET PO SCH ×2 (09:00→17:08)
[2018-09-15] MEDS: TAMSULOSIN 0.4 MG CAP.SR.24H PO SCH (09:00)
[2018-09-15] MEDS: DOCUSATE SODIUM 100 MG CAPSULE PO SCH ×2 (09:00→17:08)
[2018-09-15] MEDS: SENNOSIDES 8.6 MG TABLET PO SCH (09:00)
[2018-09-15] MEDS: LEVOFLOXACIN 500 MG /D5W 100ML 500 MG in PREMIX 1 EA IV SCH (10:55)
[2018-09-15 12:00] VITALS: BP 112/63
[2018-09-15] MEDS: LACTULOSE 10 G/15 ML UDC (PYXIS) PO PRN (13:31)
[2018-09-15] MEDS ORDERED: SIMETHICONE SUSP 40 MG/0.6 ML BOTTLE PO PRN (14:30)
[2018-09-15] MEDS ORDERED: POLYETHYLENE GLYCOL 3350 17 GM POWD.PACK PO PRN (14:30)
[2018-09-15] MEDS ORDERED: NA PHOS,M-B/NA PHOS,DI-BA 1 EA ENEMA RC PRN (14:30)
[2018-09-15] MEDS: IV 1/2NS 1000 ML 1,000 ML IV PRN (14:33)
[2018-09-15 16:00] VITALS: BP 117/69
[2018-09-15] MEDS: NEXIUM 40 MG VIAL IV SCH (17:08)
[2018-09-15] MEDS ORDERED: KEY,NONCONTROL,TO KEEP IN PYXI 1 EA MC ONE ×2 (17:40→17:45)
--- NOTE | 2018-09-15 18:40 | NUR ---
RN CLOSING NOTES PATIENT IN BED SLEEPING COMFORTABLY. EASILY AROUSABLE. PATIENT ALERT AND ORIENTED X4. NO PAIN OR ACUTE DISTRESS AT THIS TIME. RESPIRATION EVEN AND UNLABORED. SKIN IS DRY WARM TO TOUCH. IV ACCESS ON RIGHT HAND INTACT AND PATENT. FLUSHING WELL. SPRING ENCASER PUMP WAS D/C PER DR. PIMENTEL. ZAMAN CATH WAS INSERTED PER DR. BARRETT. F/C INTACT AND IN PLACE. ENEMA WAS ALSO GIVEN PER NIKOLAY LI. NO BOWEL MOVEMENTS AT THIS TIME. PATIENT WAS ABLE TO TOLERATE MEALS AND MEDS WELL. ALL NEEDS ANTICIPATED. KEPT CLEAN AND DRY. CALL LIGHT WITHIN REACHED. BED LOCKED AND IN LOWEST POSITION. SAFETY MAINTAINED. WILL CONTINUE TO MONITOR. ENDORSED TO PM NURSE FOR VILLA.
--- NOTE | 2018-09-15 19:22 | NUR ---
RN NOTES: RECEIVED AWAKE LYING ON SEMI FOWLERS POSITION, O2 AT 2L/MIN VIA NC, NO SOB OR SIGN OF RESPIRATORY DEPRESSION NOTED, A/O 3-4, ON CATHODE RAY TUBE SALVAGE PROCESSOR SR RATE-77 , ON BED REST, CONTINENT WITH ZAMAN CATH DRAINING INTO YELLOWISH COLORED URINE AT 350 CC LEVEL HARISH COLORED URINE, IV CANNULA ON RH G#22 WITH IVF OF D5% 1/2 NS AT 75 CC/HR ONGOING. ORIENTED TO UNIT AND STAFF, FALL,SAFETY AND ASPIRATION PRECAUTION OBSERVED, BED LOW AND LOCKED, CALL LIGHT WITHIN EASY REACH. CALLS AND NEEDS ATTENDED.
[2018-09-15 20:00] VITALS: BP 124/68
[2018-09-16] VITALS: BP 117/69
--- NOTE | 2018-09-16 | NUR ---
RN NOTES: BLOOD SUGAR CHECK-143, INSULIN GIVEN PER SCALE, WILL CONTINUE TO MONITOR FOR HYPER/HYPOGLYCEMIA.
[2018-09-16] MEDS: BLOOD SUGAR DIAGNOSTIC 1 EACH STRIP IN SCH ×5 (00:15→21:45)
[2018-09-16] MEDS: INSULIN REGULAR, HUMAN 100 UNIT/ML 3 ML VIAL SQ PRN ×4 (00:17→21:44)
[2018-09-16] MEDS: IV 1/2NS 1000 ML 1,000 ML IV PRN ×2 (02:48→17:41)
--- NOTE | 2018-09-16 03:00 | NUR ---
RN NOTES: -IVF CONSUMED STARTED ON 04/05 NS AT 75 ML/HR AT 0249.
[2018-09-16 04:00] VITALS: BP 106/66
--- NOTE | 2018-09-16 05:35 | NUR ---
RN NOTES: BLOOD SUGAR CHECK-117, NO INSULIN GIVEN PER SCALE, NO PAIN OR DISCOMFORT, SLEEP WELL, [place] CONTINUE TO MONITOR FOR SIGN OF HYPER/HYPOGLYCEMIA.
--- NOTE | 2018-09-16 07:28 | NUR ---
RN NOTES: MORNING CARE DONE, HAD BM, KEPT COMFORTABLE IN BED, NO SIGN OF RESPIRATORY DISTRESS, SR-74, WEIGH-282, ENDORSED TO JOANNE/RN FOR CONTINUITY OF CARE.
[2018-09-16 07:30] LABS: BASOPHILS % (AUTO) 0.2 % (0.0-2.0); HEMATOCRIT 27 % (39-51); LYMPHOCYTES # (AUTO) 1.4 /CMM (0.8-4.8); LYMPHOCYTES % (AUTO) 12.3 % (20.0-44.0); MEAN CORPUSCULAR HGB CONC 34 g/dl (31.0-36.0); MEAN CORPUSCULAR VOLUME 87 fL (80-96); MONOCYTES # (AUTO) 1.2 /CMM (0.1-1.30); MONOCYTES % (AUTO) 10.9 % (2.0-12.0); NEUTROPHILS % (AUTO) 71.6 % (43.0-81.0); PLATELET COUNT (AUTO) 249 /CMM (150-450); RED BLOOD CELL COUNT(AUTO) 3.06 MIL/uL (4.5-6.0); WHITE BLOOD COUNT (AUTO) 11.2 K/uL (4.3-11.0)
[2018-09-16 08:00] VITALS: BP 132/71
--- NOTE | 2018-09-16 08:16 | NUR ---
WINE BLENDER OPENING NOTES PATIENT RECEIVED IN BED SLEEPING COMFORTABLY. A/O X4. NO SOB, PAIN OR ACUTE DISTRESS NOTED AT THIS TIME. RESPIRATION EVEN AND UNLABORED. SKIN DRY WARM TO TOUCH. R HAND #22 IV INTACT AND PATENT. ALL NEEDS ANTICIPATED. KEPT CLEAN AND DRY. CALL LIGHT WITHIN REACHED. BED LOCKED AND IN LOWEST POSITION. SAFETY MAINTAINED. WILL CONTINUE TO MONITOR.
[2018-09-16 08:37] LABS: ALBUMIN 2.3 g/dL (3.4-5.0); BILIRUBIN,TOTAL 0.6 mg/dL (0.2-1.0); CALCIUM, SERUM 8.4 mg/dL (8.5-10.1); CREATININE 1.5 mg/dL (0.6-1.3); MAGNESIUM 2.3 mg/dL (1.8-2.4); POTASSIUM 4.3 mmol/L (3.5-5.1); TOTAL PROTEIN, SERUM 5.9 g/dL (6.4-8.2)
[2018-09-16] MEDS: TAMSULOSIN 0.4 MG CAP.SR.24H PO SCH (09:05)
[2018-09-16] MEDS: GABAPENTIN 300 MG CAPSULE PO SCH ×3 (09:05→17:18)
[2018-09-16] MEDS: SENNOSIDES 8.6 MG TABLET PO SCH (09:05)
[2018-09-16] MEDS: FAMOTIDINE (20 MG) 20 MG TABLET PO SCH ×2 (09:05→20:59)
[2018-09-16] MEDS: LamoTRIgine 100 MG TABLET PO SCH ×2 (09:05→17:18)
[2018-09-16] MEDS: DOCUSATE SODIUM 100 MG CAPSULE PO SCH ×2 (09:05→17:18)
[2018-09-16] MEDS: QUETIAPINE FUMARATE 100 MG TABLET PO SCH ×3 (09:06→21:24)
[2018-09-16] MEDS: LEVOFLOXACIN 500 MG /D5W 100ML 500 MG in PREMIX 1 EA IV SCH (11:48)
[2018-09-16] MEDS: HYDROCODONE/APAP 10/325MG 1 EA TABLET PO PRN ×2 (14:07→18:24)
--- NOTE | 2018-09-16 15:00 | NUR ---
MS RN NOTE URINE SAMPLE ORDERED TAKEN FROM ZAMAN AND SENT TO LAB.
[2018-09-16 16:00] VITALS: BP 136/70
[2018-09-16] MEDS: NEXIUM 40 MG VIAL IV SCH (18:18)
--- NOTE | 2018-09-16 19:28 | NUR ---
PANEL SAW OPERATOR OPENING NOTES PATIENT IN BED SLEEPING COMFORTABLY. A/O X4. NO SOB, PAIN OR ACUTE DISTRESS NOTED AT THIS TIME. RESPIRATION EVEN AND UNLABORED. SKIN DRY WARM TO TOUCH. R HAND #22 IV INTACT AND PATENT. ALL NEEDS ANTICIPATED. KEPT CLEAN AND DRY. CALL LIGHT WITHIN REACHED. BED LOCKED AND IN LOWEST POSITION. SAFETY MAINTAINED. CARE ENDORSED TO PULLEY MAN RN..
[2018-09-16 20:00] VITALS: BP 138/71
--- NOTE | 2018-09-16 20:05 | NUR ---
RECIEVED ASLEEP RESP EVEN AND UNLABORED. WHEN NAME SPOKEN HE AWOKE EASILY. NO C/O. BED ALARM QUALITY ASSURANCE INTERN LIGHT WITHIN HIS REACH
[2018-09-16] MEDS ORDERED: DEXTROSE 50%-WATER 50 ML DISP.SYRIN IV PRN (20:30)
[2018-09-16] MEDS ORDERED: QUETIAPINE FUMARATE 100 MG TABLET ONE (21:06)
[2018-09-17] MEDS: HYDROCODONE/APAP 10/325MG 1 EA TABLET PO PRN ×3 (00:09→17:27)
[2018-09-17 04:03] LABS: APPEARANCE,URINE CLEAR (CLEAR); BILIRUBIN,URINE NEGATIVE (NEGATIVE); BLOOD, URINE 3+ Ery/uL (NEGATIVE); COLOR,URINE YELLOW (YELLOW); KETONES,URINE TRACE (NEGATIVE); LEUKOCYTE ESTERASE ,URINE NEGATIVE (NEGATIVE); NITRITE, URINE NEGATIVE (NEGATIVE); PROTEIN,URINE 1+ mg/dl (NEGATIVE); UGLUCOSE NEGATIVE (NEGATIVE); UROBILINOGEN,URINE 0.2 EU/dL (0.2)
[2018-09-17 04:19] LABS: BACTERIA,URINE None seen /HPF (None Seen); RBC,URINE 21-50 /HPF (0-2); SQUAMOUS EPITHELIAL CELL,UR Few /HPF (None Seen); WBC,URINE 0-2 /HPF (0-3)
[2018-09-17 04:57] VITALS: BP 113/63
[2018-09-17] MEDS: IV 1/2NS 1000 ML 1,000 ML IV PRN (05:40)
[2018-09-17 05:41] LABS: EOSINOPHIL,URINE Rare
--- NOTE | 2018-09-17 06:30 | NUR ---
ENDING NOTES: SLEPT WELL THRU THIS 12 HOURS. CALLING USING THE CALL LIGHT WHEN NRRDING SOMETHING. PLEASENT. SHASHANK FOR PAIN TIMES 1 THIS 12 HOURS. ZAMAN DRAINAGE CLEAR DRESSINGS ON THE BACK CDI
[2018-09-17 06:59] LABS: BASOPHILS % (AUTO) 0.4 % (0.0-2.0); EOSINOPHILS % (AUTO) 7.2 % (0.0-6.0); HEMATOCRIT 26 % (39-51); HEMOGLOBIN 8.9 g/dL (13.5-17.5); LYMPHOCYTES % (AUTO) 22.5 % (20.0-44.0); MEAN CORPUSCULAR HGB CONC 34 g/dl (31.0-36.0); MEAN CORPUSCULAR VOLUME 87 fL (80-96); MONOCYTES # (AUTO) 1.1 /CMM (0.1-1.30); MONOCYTES % (AUTO) 12.3 % (2.0-12.0); NEUTROPHILS # (AUTO) 5.2 /CMM (1.8-8.9); NEUTROPHILS % (AUTO) 57.6 % (43.0-81.0); PLATELET COUNT (AUTO) 279 /CMM (150-450); RED BLOOD CELL COUNT(AUTO) 3.05 MIL/uL (4.5-6.0)
--- NOTE | 2018-09-17 07:15 | NUR ---
MS/JOSE MARIA RN INITIAL NOTES Report received at bedside. Patient received in bed, awake and comfortable. Alert and oriented x3, verbally responsive. No s&s of distress. On continuous oxygen via nasal cannula (for episodes of desaturation per endorsement), with no SOB/labored breathing noted. Safety measures in place. Will continue to monitor and assess patient.
[2018-09-17 07:16] LABS: ALBUMIN 2.2 g/dL (3.4-5.0); BILIRUBIN,TOTAL 0.4 mg/dL (0.2-1.0); CALCIUM, SERUM 8.7 mg/dL (8.5-10.1); CREATININE 1.3 mg/dL (0.6-1.3); MAGNESIUM 1.9 mg/dL (1.8-2.4); POTASSIUM 4.4 mmol/L (3.5-5.1); TOTAL PROTEIN, SERUM 5.8 g/dL (6.4-8.2)
[2018-09-17 08:00] VITALS: BP 145/68
[2018-09-17] MEDS: BLOOD SUGAR DIAGNOSTIC 1 EACH STRIP IN SCH ×4 (08:02→22:01)
[2018-09-17 08:09] LABS: EOSINOPHILS % (MANUAL) 10 % (0-4); LYMPHOCYTES % (MANUAL) 27 % (16-48); MONOCYTES % (MANUAL) 7 % (0-11.0); NEUTROPHILS % (MANUAL) 55 (42-76)
[2018-09-17] MEDS: FAMOTIDINE (20 MG) 20 MG TABLET PO SCH ×2 (08:23→21:44)
[2018-09-17] MEDS: SENNOSIDES 8.6 MG TABLET PO SCH (08:23)
[2018-09-17] MEDS: DOCUSATE SODIUM 100 MG CAPSULE PO SCH ×2 (08:24→17:26)
[2018-09-17] MEDS: GABAPENTIN 300 MG CAPSULE PO SCH ×3 (08:24→17:27)
[2018-09-17] MEDS: LamoTRIgine 100 MG TABLET PO SCH ×2 (08:24→17:27)
[2018-09-17] MEDS: TAMSULOSIN 0.4 MG CAP.SR.24H PO SCH (08:24)
[2018-09-17] MEDS: QUETIAPINE FUMARATE 100 MG TABLET PO SCH ×3 (08:25→21:44)
[2018-09-17] MEDS: INSULIN REGULAR, HUMAN 100 UNIT/ML 3 ML VIAL SQ PRN ×4 (08:51→22:21)
--- NOTE | 2018-09-17 10:32 | NUR ---
MS RN NON-ADMIN NOTES Meds not administered at this moment. Meds were ordered prior to today.
[2018-09-17 12:00] VITALS: BP 142/71
--- NOTE | 2018-09-17 12:00 | NUR ---
MS/abraham RN NOTES Dr. Khan came to assess and visit patient
--- NOTE | 2018-09-17 13:36 | NUR ---
MS/JOSE MARIA LETTY NOTES Tana Ramos NP at [facility] Addendum: 09/17/18 at 1437 by JOHANA GODFREY RN Tana Ramos NP ordered to give Lactulose and Miralax (PRN meds)
[2018-09-17] MEDS: LACTULOSE 10 G/15 ML UDC (PYXIS) PO PRN (14:36)
[2018-09-17 16:00] VITALS: BP 140/76
--- NOTE | 2018-09-17 19:11 | NUR ---
MS/JOSE MARIA RN CLOSING NOTES Patient remained in bed, intermittently sleeping, easily aroused/comfortable. Alert and oriented x3, verbally responsive. Morales due meds given and tolerated. No SOB/labored breathing noted. Not in any type of distress. Complained of pain with help of pain mgmt. All needs provided and met. Kept patient clean and dry. POssible discharge tomorrow to SNF. PT eval done this morning. Safety measures in place. Bed in lowest position with call light within reach and bed alarm on. Will continue to monitor and assess patient and endorse to oncoming shift nurse.
--- NOTE | 2018-09-17 19:58 | NUR ---
RN NOTES RECEIVED PATIENT ALERT ORIENTED X3, VERBALLY RESPONSIVE, NO SIGNS OF ACUTE RESPIRATORY DISTRESS NOTED, REPOSITIONED FOR COMFORT, DENIES ANY PAIN, SAFETY MEASURES IN PLACE, ASPIRATION PRECAUTION EMPHASIZE, IV ACCESS INTACT AND PATENT, ALL NEEDS ATTENDED, CALL LIGHT WITHIN EASY REACH, WILL CONTINUE TO MONITOR ACCORDINGLY.
[2018-09-17 20:00] VITALS: BP 143/72
[2018-09-17] MEDS ORDERED: FAMOTIDINE/PF INJ 20 MG/2 ML VIAL IV SCH (21:00)
[2018-09-17 21:34] VITALS: BP 143/72
[2018-09-18] VITALS: BP 143/72
[2018-09-18 04:00] VITALS: BP 139/79
[2018-09-18] MEDS: HYDROCODONE/APAP 10/325MG 1 EA TABLET PO PRN ×4 (05:23→19:25)
--- NOTE | 2018-09-18 07:25 | NUR ---
RN OPENING NOTES PATIENT IN BED ASLEEP BUT EASILY AROUSABLE. ALERT AND ORIENTED X4. ON 2L NC, BUT TENDS TO REMOVE HE STATING HE DOES NOT NEED. OFF THE NC, SATING >90%. HAS A ZAMAN CATH. HAS 2 SURGICAL SITES IN THE BACK. HAS A RIGHT UA #22. PER NOC SHIFT, WAS GIVEN NORCO FOR BACK PAIN AND BLE AT 0530. POSSIBLE DC TO SNF PER MD. BED LOCKED AND IN LOWEST POSITION. CALL LIGHT WITHIN REACH. WILL CONT TO MONITOR
--- NOTE | 2018-09-18 07:28 | NUR ---
RN NOTES ABLE TO REST AND SLEEP AT INTERVALS, PATIENT ALERT ORIENTED X3, VERBALLY RESPONSIVE, NO SIGNS OF ACUTE RESPIRATORY DISTRESS NOTED, REPOSITIONED FOR COMFORT, DENIES ANY PAIN, SAFETY MEASURES IN PLACE, ASPIRATION PRECAUTION EMPHASIZE, IV ACCESS INTACT AND PATENT, ALL NEEDS ATTENDED AND MET, CALL LIGHT WITHIN EASY REACH, ENDORSED TO AM NURSE FOR CONTINUITY OF CARE.
[2018-09-18 07:59] LABS: ALBUMIN 2.4 g/dL (3.4-5.0); BILIRUBIN,TOTAL 0.6 mg/dL (0.2-1.0); CALCIUM, SERUM 9.1 mg/dL (8.5-10.1); CREATININE 1.1 mg/dL (0.6-1.3); MAGNESIUM 1.8 mg/dL (1.8-2.4); PHOSPHORUS 3.2 mg/dL (2.5-4.9); POTASSIUM 5.1 mmol/L (3.5-5.1); TOTAL PROTEIN, SERUM 6.1 g/dL (6.4-8.2)
[2018-09-18 08:00] VITALS: BP 139/77
[2018-09-18] MEDS: BLOOD SUGAR DIAGNOSTIC 1 EACH STRIP IN SCH ×3 (08:00→18:16)
[2018-09-18] MEDS: SENNOSIDES 8.6 MG TABLET PO SCH (08:28)
[2018-09-18] MEDS: DOCUSATE SODIUM 100 MG CAPSULE PO SCH ×2 (08:28→16:54)
[2018-09-18] MEDS: FAMOTIDINE (20 MG) 20 MG TABLET PO SCH (08:29)
[2018-09-18] MEDS: GABAPENTIN 300 MG CAPSULE PO SCH ×3 (08:29→16:54)
[2018-09-18] MEDS: LamoTRIgine 100 MG TABLET PO SCH ×2 (08:29→16:54)
[2018-09-18] MEDS: TAMSULOSIN 0.4 MG CAP.SR.24H PO SCH (08:29)
[2018-09-18] MEDS: INSULIN REGULAR, HUMAN 100 UNIT/ML 3 ML VIAL SQ PRN ×3 (08:31→18:27)
[2018-09-18 08:36] LABS: BASOPHILS % (AUTO) 0.4 % (0.0-2.0); EOSINOPHILS % (AUTO) 5.3 % (0.0-6.0); HEMATOCRIT 29 % (39-51); HEMOGLOBIN 9.8 g/dL (13.5-17.5); LYMPHOCYTES # (AUTO) 1.5 /CMM (0.8-4.8); LYMPHOCYTES % (AUTO) 13.3 % (20.0-44.0); MEAN CORPUSCULAR HGB CONC 34 g/dl (31.0-36.0); MEAN CORPUSCULAR VOLUME 87 fL (80-96); MONOCYTES # (AUTO) 1.2 /CMM (0.1-1.30); MONOCYTES % (AUTO) 10.5 % (2.0-12.0); NEUTROPHILS # (AUTO) 7.8 /CMM (1.8-8.9); NEUTROPHILS % (AUTO) 70.5 % (43.0-81.0); PLATELET COUNT (AUTO) 293 /CMM (150-450); RED BLOOD CELL COUNT(AUTO) 3.32 MIL/uL (4.5-6.0)
[2018-09-18] MEDS ORDERED: QUETIAPINE FUMARATE 25 MG TABLET PO ONE (09:00)
[2018-09-18] MEDS ORDERED: QUETIAPINE FUMARATE 100 MG TABLET PO ONE (09:00)
[2018-09-18] MEDS ORDERED: LEVOFLOXACIN (500MG) 500 MG TABLET PO SCH (09:00)
[2018-09-18 10:00] VITALS: BP 139/77
[2018-09-18] MEDS ORDERED: SIME40DR7 PO (11:00)
[2018-09-18] MEDS ORDERED: DOCU-270 PO (11:00)
[2018-09-18] MEDS ORDERED: QUET100T PO (11:00)
[2018-09-18] MEDS ORDERED: LEVO500T2 PO (11:00)
[2018-09-18] MEDS ORDERED: POLY17PO4 PO (11:00)
[2018-09-18] MEDS ORDERED: OXYC5CAP18 PO (11:00)
[2018-09-18] MEDS ORDERED: SENN-168 PO (11:00)
--- NOTE | 2018-09-18 13:29 | NUR ---
RN NOTES PATIENT ASKED FOR NORCO AT 0900. DUE TO BACK PAIN AND BLE PAIN. PER DR BARRETT KEEP THE ZAMAN, WILL BE DC TODAY IF ABLE TO FIND A PLACEMENT.
[2018-09-18] MEDS ORDERED: QUETIAPINE FUMARATE 100 MG TABLET PO SCH (14:00)
--- NOTE | 2018-09-18 15:39 | NUR ---
RN NOTES AT BEDSIDE, WAITING FOR EXIT CARE TO BE DONE. WAITING FOR DR BARRETT TO GIVE AN ORDER TO AMINATA ZAMAN. [facility]. WILL DRIVE PATIENT TO [facility]
[2018-09-18 16:00] VITALS: BP 124/68
--- NOTE | 2018-09-18 16:37 | NUR ---
RN NOTES PATIENT IS REFUSING TO GET DISCHARGED IF HE IS AMBULATING TO HIS CAR. HE STATES THAT HE IS TOO WEAK TO AMBULATE AND WANTS A AMBULANCE A TRANSPORTATION IF POSSIBLE. DENTAL LABORATORY SUPERVISOR AWARE AND WORKING ON IT. LEFT AND WENT HOME
[2018-09-18 18:00] VITALS: BP 124/68
--- NOTE | 2018-09-18 18:50 | NUR ---
RN CLOSING NOTES PATIENT IN BED, AWAKE AND ALERT. PATIENT WILL BE DC'D TONIGHT AT 2030. WILL BE PICKED UP BY THE AMBULANCE. AWARE. ZAMAN HAS BEEN REMOVED, PATIENT VOIDED 2X AFTER REMOVING. HAS A RIGHT UA #22 SALINE LOCKED. WILL REMOVE BEFORE DC. WILL ENDORSE TO NOC SHIFT FOR VILLA
--- NOTE | 2018-09-18 19:36 | NUR ---
RN OPENING NOTES PATIENT IN BED. NO S/S OF ACUTE DISTRESS NOTED. RESPIRATION EVEN AND UNLABORED. NO SOB NOTED. ON 2L VIA NC, SATURATING 97%. PATIENT A/O X4, DENIES ANY PAIN OR DISCOMFORT AT THIS TIME. IV SITE ON RIGHT UA #22 GAUGE NOTED WITH NO S/S OF INFECTION/ INFILTRATION. PATIENT WILL BE DISCHARGED TODAY, ACCORDING TO THE AM SHIFT NURSE, WAITING FOR TRANSPORTATION, PICK TIME 1999. SAFETY MAINTAINED, BED AT THE LOWEST POSITION, LOCKED WILL CONTINUE TO MONITOR PATIENT PER PLAN OF CARE.
--- NOTE | 2018-09-18 20:40 | NUR ---
MS/RN NOTES PATIENT LEFT THE UNIT [facility]IA [facility], ACCOMPANIED BY 3 EMT'S IN STABLE CONDITION NO S/S OF ACUTE DISTRESS NOTED UPON DISCHARGE. RESPIRATION EVEN AN UNLABORED. NO SOB NOTED. ALL BELONGINGS GIVEN TO THE EMT PERSONNELS. BODY ASSESSMENT DONE PER HOSPITAL PROTOCOL. PATIENT DENIES ANY PAIN OR DISCOMFORT AT THIS TIME.
[2018-09-19 09:10] LABS: *SPE A/G RATIO 0.9 (0.7-1.7); *SPE ALBUMIN 2.5 g/dL (2.9-4.4); *SPE ALPHA-1-GLOBULIN 0.4 g/dL (0.0-0.4); *SPE BETA GLOBULIN 0.8 g/dL (0.7-1.3); *SPE GLOBULIN, TOTAL 2.7 g/dL (2.2-3.9); *SPE M-SPIKE Not Observed g/dL (Not Observed); *SPEGAMMA GLOBULIN 0.5 g/dL (0.4-1.8)
[2018-09-19 14:09] LABS: PTH, INTACT 20 pg/mL (15-65)
== END 2018-09-18 21:00 | DRG 453 ==
LOC: DS 05:57 → MED 05:59 → ICU 15:30 → TELE-TD 09-13 11:31 → TELE1 09-13 11:57 → MEDSG1 09-16 10:55
PROVIDERS: ADMIT Nurse Practitioner Acute Care; ATTEND Student in an Organized Health Care Education/Training Program
DX: M96.1 Postlaminectomy syndrome, not elsewhere classified (principal); J96.91 Respiratory failure, unspecified with hypoxia; J96.92 Respiratory failure, unspecified with hypercapnia; G93.41 Metabolic encephalopathy; N17.0 Acute kidney failure with tubular necrosis; D68.59 Other primary thrombophilia; M96.0 Pseudarthrosis after fusion or arthrodesis; J98.11 Atelectasis; M62.82 Rhabdomyolysis; M51.26 Other intervertebral disc displacement, lumbar region; J44.9 Chronic obstructive pulmonary disease, unspecified; Z87.891 Personal history of nicotine dependence; F31.9 Bipolar disorder, unspecified; E87.5 Hyperkalemia; E66.01 Morbid (severe) obesity due to excess calories; Z68.38 Body mass index [BMI] 38.0-38.9, adult; G25.81 Restless legs syndrome; K21.9 Gastro-esophageal reflux disease without esophagitis; I12.9 Hypertensive chronic kidney disease with stage 1 through stage 4 chronic kidney disease, or unspecified chronic kidney disease; N18.9 Chronic kidney disease, unspecified; J84.89 Other specified interstitial pulmonary diseases; I95.9 Hypotension, unspecified; D72.829 Elevated white blood cell count, unspecified; K59.00 Constipation, unspecified; N40.1 Benign prostatic hyperplasia with lower urinary tract symptoms; R33.8 Other retention of urine; D64.9 Anemia, unspecified; E11.22 Type 2 diabetes mellitus with diabetic chronic kidney disease; E78.00 Pure hypercholesterolemia, unspecified; E78.5 Hyperlipidemia, unspecified; E83.42 Hypomagnesemia; G47.33 Obstructive sleep apnea (adult) (pediatric); G89.29 Other chronic pain; R14.0 Abdominal distension (gaseous)
CPT/HCPCS: 31720; 36415; 36600; 71045-TC; 72020-TC; 74018; 76705-TC; 76770-TC; 80048-TC; 80053-TC; 80061-TC; 80305; 81000-TC; 82550-TC; 82570-TC; 82803-TC; 82962-TC; 83735-TC; 83970; 84100-TC; 84155; 84155-TC; 84165; 84300-TC; 85025-TC; 86850-TC; 86921-TC; 87081-TC; 88300-TC; 88304-TC; 88311-TC; 92526; 92611-TC; 93307-TC; 94002-TC; 94799-TC; 97110-TC; 97112-TC; 97116-TC; 97530-TC; 99082-TC; A4216; A6209; A6253; A6402; C1751; G0378; J0610; J0690; J1040; J1100; J1170; J1644; J1815; J1940; J1956; J2370; J2405; J2704; J3010; J3370; J3475; J3490; J7030; J7040; J7042; J7050; J7060; J7070; P9016-BL; Q9968